=== PATIENT | female | born 1990 | race African-American/Black ===

== ENCOUNTER 2016-08-13 13:48 | Emergency (ER) | payer SELFPAY ==
[2016-08-13 14:37] LABS: BASOPHILS 0.5 % (0-2); EOSINOPHILS 0.3 % (0-7); HEMATOCRIT 42.5 % (36.0-48.0); HEMOGLOBIN 14.1 g/dL (12-16); IMMATURE GRANULOCYTES 0.2 % (0-5); MCH 30.5 pg (26.0-34.0); MCHC 33.2 g/dL (31.0-37.0); MCV 91.8 fL (80.0-100.0); MEAN PLATELET VOLUME 10.7 fL (7.4-10.4); MONOCYTES 5.3 % (2-11); NEUTROPHILS 59.7 % (40-80); PLATELET COUNT 229 10x3/uL (130-400); RBC 4.63 10x6/uL (4.00-5.40); RDW 12.8 % (11.5-14.5)
== END 2016-08-13 15:25 | disposition home or self-care (01) ==
LOC: D.ER 13:48
PROVIDERS: Family Medicine
DX: J20.9 Acute bronchitis, unspecified (principal); J01.90 Acute sinusitis, unspecified; J06.9 Acute upper respiratory infection, unspecified; J02.9 Acute pharyngitis, unspecified